=== PATIENT | female | born 1955 | race Caucasian/White ===

== ENCOUNTER 2016-08-06 01:52 | Emergency (ER) | payer MEDICARE, OTHER ==
--- NOTE | 2016-08-06 02:49 | ER Document Report ---
ED General - General Stated Complaint: POSSIBLE SEIZURE Time seen by provider: 02:40 Notes: Patient is a 61 year old female that comes to the ED with chief complaint of possible seizure. Patient states she was undergoing a sleep study and she was awakened during the sleep study and was told she had been shaking her right leg and foot and had been moving her head back and forth on the pillow. She states she was told she might of been having a seizure. She denies any history of seizures, she denies being sluggish when awakened, she states she feels normal. Patient states she has neuropathy in her feet, worse in her right foot, states she has a habit of shaking the foot when the number gets tingling/ numbness sensations. She denies any other symptoms, she states she watched the video and did not see any other symptoms. She states that she does not believe she had a seizure. TRAVEL OUTSIDE OF THE [place] IN LAST 30 DAYS: No - Related Data Allergies/Adverse Reactions: diclofenac [From Voltaren] Allergy (Verified 08/06/16 02:46) lidocaine [Lidocaine] Allergy (Verified 08/06/16 02:47) Past Medical History - General Information source: Patient - Social History Smoking Status: Never Smoker Frequency of alcohol use: None Drug Abuse: None Lives with: Family Family History: CAD - Past Medical History Cardiac Medical History: Reports: Hx Hypertension Endocrine Medical History: Reports: Hx Diabetes Mellitus Type 2 Psychiatric Medical History: Reports: Hx Depression Surgical Hx: Negative - Immunizations Immunizations up to date: Yes Hx Diphtheria, Pertussis, Tetanus Vaccination: Yes Review of Systems - Review of Systems Constitutional: No symptoms reported EENT: No symptoms reported Cardiovascular: No symptoms reported Respiratory: No symptoms reported Gastrointestinal: No symptoms reported Genitourinary: No symptoms reported Female Genitourinary: No symptoms reported Musculoskeletal: No symptoms reported Skin: No symptoms reported Hematologic/Lymphatic: No symptoms reported Neurological/Psychological: See HPI Physical Exam - Vital signs Vitals: Temp Pulse Resp BP Pulse Ox 98.2 F 82 12 167/101 H 97 08/06/16 02:09 08/06/16 02:09 08/06/16 02:09 08/06/16 02:09 08/06/16 02:09 Interpretation: Normal - General General appearance: Appears well, Alert In distress: None - HEENT Head: Normocephalic, Atraumatic Eyes: Normal Conjunctiva: Normal Extraocular movements intact: Yes Eyelashes: Normal Pupils: PERRL Mouth/Lips: Normal Mucous membranes: Normal Pharynx: Normal Neck: Normal - Respiratory Respiratory status: No respiratory distress Chest status: Nontender Breath sounds: Normal. No: Decreased air movement, Wheezing Chest palpation: Normal - Cardiovascular Rhythm: Regular. No: Tachycardia Heart sounds: Normal auscultation, S1 appreciated, S2 appreciated Murmur: No - Abdominal Inspection: Normal Distension: No distension Bowel sounds: Normal Tenderness: Nontender. No: Tender - Back Back: Normal, Nontender. 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 Patient declines any additional workup at this time, after discussion she does agree to follow-up with a referral to neurology for possible EEG or other evaluation, she agrees to return to emergency department for any concerning symptoms. Patient's blood pressure initially elevated, patient states she was "worked up", repeated and is improved , patient states that is normally low at home in the 130s over 80s, she states she'll keep a close eye on this. Patient does not have any headache, chest pain , or any other emergent symptoms in regards to her blood pressure. - Vital Signs Vital signs: Temp Pulse Resp BP Pulse Ox 98.0 F 77 14 157/68 H 97 08/06/16 02:54 08/06/16 02:54 08/06/16 02:54 08/06/16 02:54 08/06/16 02:54 Discharge - Discharge Clinical Impression: Dysfunction of sleep stage or arousal Convulsions Qualifiers: Convulsion type: unspecified Qualified Code(s): R56.9 - Unspecified convulsions Condition: Stable Disposition: HOME, SELF-CARE Additional Instructions: Please follow up with the neurology referral for additional evaluation. Return to the ED for any concerning symptoms (including a seizure). Forms: Elevated Blood Pressure Referrals: MAHAMED ROTHMAN MD [ACTIVE STAFF] - Follow up in 3-5 days
[2016-08-06 02:55] VITALS: BP 157/68
== END 2016-08-06 02:59 | disposition home or self-care (01) ==
LOC: ER 01:52
DX: R56.9 Unspecified convulsions (principal)
CPT/HCPCS: 99284

== ENCOUNTER → 2016-08-16 | Outpatient (CLI) | payer MEDICARE | LOC: RAD 12:56 | PROVIDERS: ATTEND Physician Assistant Medical | DX: G40.309 Generalized idiopathic epilepsy and epileptic syndromes, not intractable, without status epilepticus (principal) | CPT/HCPCS: 70551 ==